=== PATIENT | male | born 1965 | race Caucasian/White ===

== ENCOUNTER 2017-11-29 19:04 | Emergency (ER) | payer MEDICARE ==
--- NOTE | 2017-11-29 19:24 | Emergency Department Record ---
History of Present Illness - General Chief complaint: Lower Extremity Pain Stated complaint: l leg swollen Time Seen by Provider: 11/29/17 19:18 Source: Patient Mode of Arrival: Ambulatory Limitations: No limitations - History of Present Illness Initial comments: 52 yo male presents to ED for evaluation of bilateral lower extremity edema over the past 24 hours. Patient denies history of DVT or CHF, but does report history of massive [place] 3 years ago resulting in ischemic cardiomyopathy, reports previous AICD and EF of 25%. Patient reports increased stress as he has been attending the trial this week. MD Complaint: Extremity pain, Extremity swelling Onset/Timin -: Hour(s) Location: Bilateral History of Same: No Severity scale (1-10): 7 Quality: Aching Consistency: Constant Improves with: Nothing Worsens with: Nothing Associated Symptoms: Denies other symptoms - Related Data Home Medications Medication Instructions Recorded Confirmed Last Taken Clopidogrel Bisulfate [Plavix] 75 mg PO DAILY 11/29/17 11/29/17 Unknown Hydrocodone/Acetaminophen [[place] 1 each PO Q4H 11/29/17 11/29/17 Unknown 10-325 Tablet] Previous Rx's Medication Instructions Recorded Diazepam [Valium] 5 mg PO Q8H PRN #15 tab 11/29/17 Furosemide [Lasix] 40 mg PO DAILY #3 tab 11/29/17 Allergies Allergy/AdvReac Type Severity Reaction Status Date / Time No Known Drug Allergies Allergy Verified 11/18/14 11:39 Travel Screening - Travel/Exposure Within Last 30 Days Have you traveled within the last 30 days?: No - Travel/Exposure Within Last Year Have you traveled outside the [place] in the last year?: No - Additonal Travel Details Have you been exposed to anyone with a communicable illness?: No - Travel Symptoms Symptom Screening: None Review of Systems Constitutional: Denies: Chills, Fever, Malaise, Night sweats Eyes: Denies: Eye discharge, Eye pain ENT: Denies: Congestion, Ear pain Respiratory: Denies: Cough, Dyspnea Cardiovascular: Reports: Edema. Denies: Chest pain, Dyspnea on exertion Endocrine: Denies: Fatigue, Heat or cold intolerance Gastrointestinal: Denies: Abdominal pain, Nausea, Vomiting Genitourinary: Denies: Incontinence, Retention Musculoskeletal: Denies: Arthralgia, Back pain, Gout, Joint swelling Skin: Denies: Bruising, Change in color Neurological: Denies: Abnormal gait, Confusion, Headache, Seizure Psychiatric: Denies: Anxiety Hematological/Lymphatic: Denies: Anemia, Blood Clots Past Medical History - SOCIAL HISTORY Smoking Status: Former smoker Alcohol Use: None Drug Use: None - RESPIRATORY Hx Respiratory Disorders: No - CARDIOVASCULAR Hx Cardio Disorders: No Hx Abnormal EKG: Yes Hx Cardiac Cath: Yes Hx Heart Attack: Yes Hx Pacemaker/Defib: Yes (Temp external harness Defib) - NEURO Hx Neuro Disorders: No - GI Hx GI Disorders: No - Hx Genitourinary Disorders: No - ENDOCRINE Hx Endocrine Disorders: No - MUSCULOSKELETAL Hx Musculoskeletal Disorders: No - PSYCH Hx Psych Problems: No - HEMATOLOGY/ONCOLOGY Hx Hematology/Oncology Disorders: No Family Medical History Any Significant Family History?: No Hx Heart Disease: Grandparents Physical Exam - General General Appearance: Alert, Oriented x3, Cooperative, Moderate distress Limitations: No limitations - Head Head exam: Atraumatic, Normocephalic, Normal inspection Head exam detail: negative: Abrasion, Contusion, Hooker's sign, General tenderness, Hematoma, Laceration - Eye Eye exam: Normal appearance. negative: Conjunctival injection, Periorbital swelling, Periorbital tenderness, Scleral icterus - ENT Ear exam: negative: Auricular hematoma, Auricular trauma Nasal Exam: negative: Active bleeding, Discharge, Dried blood, Foreign body Mouth exam: negative: Drooling, Laceration, Muffled voice, Tongue elevation - Neck Neck exam: Normal inspection. negative: Meningismus, Tenderness - Respiratory Respiratory exam: Decreased breath sounds. negative: Rales, Respiratory distress, Rhonchi, Stridor - Cardiovascular Cardiovascular Exam: Regular rate, Normal rhythm, Normal heart sounds - GI/Abdominal GI/Abdominal exam: Soft. negative: Rebound, Rigid, Tenderness - Rectal Rectal exam: Deferred - exam: Deferred - Extremities Extremities exam: Pedal edema (2+ bilateral LE edema). negative: Calf tenderness, Tenderness - Back Back exam: Denies: CVA tenderness (R), CVA tenderness (L) - Neurological Neurological exam: Alert, Normal gait, Oriented X3 - Psychiatric Psychiatric exam: Normal affect, Normal mood - Skin Skin exam: Normal color. negative: Abrasion Type of lesion: negative: abrasion Course Vital Signs 11/29/17 19:09 Temperature 98.5 F Pulse Rate 88 Respiratory 20 Rate Blood Pressure 135/83 Pulse Ox 90 L - Reevaluation(s) Reevaluation #1: 11/29/17 19:36 EKG: NSR 80 Normal axis, normal intervals, low voltage present ST elevation ZV2, V3 similar to previous (07/09/16). Reevaluation #2: 11/29/17 20:30 CXR: New ICD since previous, no acute infiltrate, no acute process identified. Reevaluation #3: 11/29/17 20:46 patient was updated on all results, negative D-Dimer and minimally elevated BNP (does not appear c/w CHF). 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 Patient appears stable for discharge at this time. Medical Decision Making - Lab Data Result diagrams: 11/29/17 19:30 11/29/17 19:30 Disposition Disposition: Discharge Clinical Impression: Peripheral edema Disposition: Home, Self-Care Condition: (2) Stable Instructions: Leg Edema (ED) Additional Instructions: Return to ED if your symptoms worsen or if you have any concerns. Valium and Lasix as directed. Follow-up with your family doctor in 3-5 days as directed. Prescriptions: Diazepam [Valium] 5 mg PO Q8H PRN #15 tab PRN Reason: Pain - Moderate (5-7) Furosemide [Lasix] 40 mg PO DAILY #3 tab Forms: Patient Portal Access Time of Disposition: 20:51 Quality - Quality Measures Quality Measures: N/A - Blood Pressure Screening Does Patient Have Any of the Following: Active Dx of HTN Blood Pressure Classification: Pre-Hypertensive BP Reading Systolic Measurement: 135 Diastolic Measurement: 83 Screening for High Blood Pressure: Patient Exclusion, Hx of HTN [G9744]
[2017-11-29 19:43] LABS: BASO % 0.1 % (0-6); EOS % 0.1 % (0-6); GRAN % 76.2 % (47-80); HEMATOCRIT 41.5 % (42.0-52.0); HEMOGLOBIN 13.6 gm/dl (14.0-18.0); LYMPH % 14.7 % (16-45); MEAN CELL VOLUME 97.6 fl (81-97); MEAN CORPUSCULAR HGB CONC 32.8 g/dl (32-36); MONO % 8.9 % (0-9); PLATELET COUNT 325 K/uL (130-400); RED BLOOD COUNT 4.25 M/uL (4.40-5.70); RED CELL DISTRIBUTION WIDTH 14.1 % (11.5-14.5); WHITE BLOOD COUNT W/O DIFF 14.6 K/uL (4.2-12.2)
[2017-11-29 19:52] LABS: BLOOD UREA NITROGEN 19 mg/dL (6-20); EST GLOMERULAR FILTRATION RATE > 60 mL/min; TOTAL PROTEIN 7.1 g/dL (6.6-8.7)
[2017-11-29 19:54] LABS: GLUCOSE,RANDOM 156 mg/dL (74-109)
[2017-11-29 19:57] LABS: ALB/GLOB RATIO 1.4 (1.1-1.8); ALBUMIN 4.2 g/dL (4.0-5.0); ALKALINE PHOSPHATASE 109 U/L (40-129); ALT/SGPT 33 U/L (<41); AST/SGOT 49 U/L (10.0-50.0)
[2017-11-29] MEDS ORDERED: FUROSEMIDE IV 20MG/2ML VIAL IVP ONE (20:48)
[2017-11-29] MEDS ORDERED: DIAZEPAM 5 MG TABLET PO ONE (20:49)
--- NOTE | 2017-11-30 18:24 | RADIOLOGY REPORT ---
EXAM: CHEST 2 VIEWS HISTORY: LEFT THIGH PAIN, HISTORY OF CHF. TECHNIQUE: PA and lateral views. COMPARISON: Portable chest 11/18/14. FINDINGS: Heart size is within normal limits. There is now an ICD in place, new since the prior exam, with the electrode leads in the region of the right atrium and right ventricle. No pneumothorax evident. No definite acute infiltrate seen. No pleural effusion or pneumothorax evident. IMPRESSION: 1. NEW ICD IN PLACE WITH NO PNEUMOTHORAX EVIDENT. 2. HEART SIZE WITHIN NORMAL LIMITS. 3. NO DEFINITE ACUTE INFILTRATE SEEN. JOB NUMBER: [id number] [facility]
== END 2017-11-29 21:03 | disposition home or self-care (01) ==
LOC: ER 19:04
DX: R60.0 Localized edema (principal); R79.89 Other specified abnormal findings of blood chemistry; M79.652 Pain in left thigh; I50.9 Heart failure, unspecified; I25.2 Old myocardial infarction; Z95.810 Presence of automatic (implantable) cardiac defibrillator; Z87.891 Personal history of nicotine dependence
CPT/HCPCS: 99284 ×2; 96374; 85025; 80053; 84484; 85379; 83880; 71046; 93005; 93010; J3490; J1940

== ENCOUNTER 2018-11-08 16:34 | Emergency (ER) | payer MEDICARE ==
--- NOTE | 2018-11-08 16:58 | Emergency Department Record ---
History of Present Illness - General Chief Complaint: Numbness Stated Complaint: RT SIDE NUMB Time Seen by Provider: 11/08/18 16:47 Source: Patient Mode of Arrival: Ambulatory Limitations: No limitations - History of Present Illness Initial Comments: pt started having r sided numbness and decreased parakeet raiser 1 hr ago. the numbness is in his arm and shoulder and face. he has a hx of a cardiac arrest. he has no aleman. Onset/Timin -: Minutes(s) Location: Right arm, Right face History of same: No Place: Home Severity: Severe Quality: Numb Improves With: None Worsens With: None On Anticoagulants: Yes Context: Sudden onset Associated Symptoms: Denies other symptoms Treatments Prior to Arrival: None - [place] Coma Scale Eye Response: (4) Open spontaneously Motor Response: (6) Obeys commands Verbal Response: (5) Oriented [place] Total: 15 - Symptoms of Stroke Onset of Symptoms Date: 11/08/18 Onset of Symptoms Time: 16:00 Symptom Onset Unknown: No Symptoms of stroke: Muscle Weakness, Numbness, Weakness of Face Muscles Baseline State End Date: 11/08/18 Baseline State End Time: 16:00 - Related Data Allergies/Adverse Reactions: Allergies Allergy/AdvReac Type Severity Reaction Status Date / Time No Known Drug Allergies Allergy Unverified 02/12/18 11:58 Travel Screening - Travel/Exposure Within Last 30 Days Have you traveled within the last 30 days?: No - Travel Symptoms Symptom Screening: Weakness Review of Systems Reviewed: No additional complaints except as noted below Constitutional: Reports: As per HPI. Denies: Chills, Fever, Malaise, Night sweats, Weakness, Weight change Eyes: Reports: As per HPI. Denies: Eye discharge, Eye pain, Photophobia, Vision change ENT: Reports: As per HPI. Denies: Congestion, Dental pain, Ear pain, Epistaxis , Hearing loss, Throat pain Respiratory: Reports: As per HPI. Denies: Cough, Dyspnea, Hemoptysis, Stridor, Wheezes Cardiovascular: Reports: As per HPI. Denies: Arrhythmia, Chest pain, Dyspnea on exertion, Edema, Murmurs, Orthopnea, Palpitations, Paroxysmal nocturnal dyspnea, Rheumatic Fever, Syncope Endocrine: Reports: As per HPI. Denies: Fatigue, Heat or cold intolerance, Polydipsia, Polyuria Gastrointestinal: Reports: As per HPI. Denies: Abdominal pain, Constipation, Diarrhea, Hematemesis, Hematochezia, Melena, Nausea, Vomiting Genitourinary: Reports: As per HPI. Denies: Dysuria, Frequency, Hematuria, Incontinence, Retention, Testicular pain, Testicular mass, Urgency Musculoskeletal: Reports: As per HPI. Denies: Arthralgia, Back pain, Gout, Joint swelling, Myalgia, Neck pain Skin: Reports: As per HPI. Denies: Bruising, Change in color, Change in hair/ nails, Lesions, Pruritus, Rash Neurological: Reports: As per HPI, Numbness, Paresthesias, Tingling, Weakness. Denies: Abnormal gait, Confusion, Headache, Seizure, Tremors, Vertigo Psychiatric: Reports: As per HPI. Denies: Anxiety, Auditory hallucinations, Depression, Homicidal thoughts, Suicidal thoughts, Visual hallucinations Hematological/Lymphatic: Reports: As per HPI. Denies: Anemia, Blood Clots, Easy bleeding, Easy bruising, Swollen glands Past Medical History - SOCIAL HISTORY Smoking Status: Light tobacco smoker (<10/day) Alcohol Use: Occasional Drug Use: None - RESPIRATORY Hx Respiratory Disorders: No - CARDIOVASCULAR Hx Cardio Disorders: No Hx Abnormal EKG: Yes Hx Cardiac Cath: Yes Hx Heart Attack: Yes Hx Pacemaker/Defib: Yes (Temp external harness Defib) - NEURO Hx Neuro Disorders: No - GI Hx GI Disorders: No - Hx Genitourinary Disorders: No - ENDOCRINE Hx Endocrine Disorders: No - MUSCULOSKELETAL Hx Musculoskeletal Disorders: No - PSYCH Hx Psych Problems: No - HEMATOLOGY/ONCOLOGY Hx Hematology/Oncology Disorders: No Family Medical History Any Significant Family History?: Yes Hx Heart Disease: Grandparents Hx Stroke: Grandparents Physical Exam - General General Appearance: Alert, Oriented x3, Cooperative, Mild distress - Head Head exam: Normal inspection - Eye Eye exam: Normal appearance, PERRL, EOMI Pupils: Normal accommodation - ENT ENT exam: Normal exam, Mucous membranes moist, Normal external ear exam, Normal orophraynx Ear exam: Normal external inspection. negative: External canal tenderness Nasal Exam: Normal inspection. negative: Discharge, Sinus tenderness Mouth exam: Normal external inspection, Tongue normal Teeth exam: Normal inspection. negative: Dental caries Throat exam: Normal inspection. negative: Tonsillar erythema, Tonsillar exudate - Neck Neck exam: Normal inspection, Full ROM. negative: Tenderness - Respiratory Respiratory exam: Normal lung sounds bilaterally. negative: Respiratory distress - Cardiovascular Cardiovascular Exam: Regular rate, Normal rhythm, Normal heart sounds - GI/Abdominal GI/Abdominal exam: Soft, Normal bowel sounds. negative: Tenderness - Rectal Rectal exam: Deferred - exam: Deferred - Extremities Extremities exam: Normal inspection, Full ROM, Normal capillary refill. negative: Tenderness - Back Back exam: Reports: Normal inspection, Full ROM. Denies: Muscle spasm, Rash noted, Tenderness - Neurological Neurological exam: Alert, CN II-XII intact, Motor sensory deficit (r sided numbness in arm and face and weakness in r arm and r leg), Normal gait, Oriented X3 - Psychiatric Psychiatric exam: Normal affect, Normal mood - Skin Skin exam: Dry, Intact, Normal color, Warm Stroke Assessment - NIH Stroke Scale 1a. Level of Consciousness: (0) Alert 1b. LOC Questions: (0) Answers Correctly 1c. LOC Commands: (0) Performs Tasks Correctly 2. Best Gaze: (0) Normal 3. Visual: (0) No Visual Loss 4. Facial Palsy: (0) Normal Symmetrical Movement 5a. Motor Arm Left: (0) No Drift 5b. Motor Arm Right: (1) Drift 6a. Motor Leg Left: (0) No Drift 6b. Motor Leg Right: (1) Drift 7. Limb Ataxia: (1) Present 1 Limb 8. Sensory: (1) Mild/Moderate Sensory Loss 9. Best Language: (0) No Aphasia 10. Dysarthria: (0) Normal 11. Extinction/Inattention: (0) No Abnormality NIH Stoke Scale Total: 4 Course Vital Signs 11/08/18 16:37 Pulse Rate 84 Respiratory 25 H Rate Blood Pressure 151/89 Pulse Ox 96 - Reevaluation(s) Reevaluation #1: 11/08/18 17:44 d/w dr bowden who agreed with TPA Reevaluation #2: 11/08/18 17:46 pt has no contraindications to tpa Medical Decision Making - Lab Data Result diagrams: 11/08/18 16:45 11/08/18 16:45 Disposition Disposition: Transfer Clinical Impression: Stroke Qualifiers: CVA mechanism: unspecified Qualified Code(s): I63.9 - Cerebral infarction, unspecified Disposition: Acute Care Hospital Transfer Transfer To: [facility] Reason For Transfer: stroke Accepting Physician: jacqueline bowden and jess Time Discussed w/Accepting Physician: 17:41 Forms: Patient Portal Access Quality - Quality Measures Quality Measures: N/A - Blood Pressure Screening Does Patient Have Any of the Following: Active Dx of HTN Blood Pressure Classification: Pre-Hypertensive BP Reading Systolic Measurement: 151 Diastolic Measurement: 89 Screening for High Blood Pressure: Patient Exclusion, Hx of HTN [G9744]
[2018-11-08 17:05] LABS: BASO % 0.3 % (0-6); EOS % 2.8 % (0-6); GRAN % 64.7 % (47-80); HEMATOCRIT 45.2 % (42.0-52.0); LYMPH % 24.1 % (16-45); MEAN CELL VOLUME 98.9 fl (81-97); MEAN CORPUSCULAR HEMOGLOBIN 32.8 pg (27-33); MEAN CORPUSCULAR HGB CONC 33.2 g/dl (32-36); MEAN PLATELET VOLUME 9.3 fl (7.4-10.4); MONO % 8.1 % (0-9); PLATELET COUNT 316 K/uL (130-400); RED BLOOD COUNT 4.57 M/uL (4.40-5.70); RED CELL DISTRIBUTION WIDTH 13.2 % (11.5-14.5); WHITE BLOOD COUNT W/O DIFF 10.1 K/uL (4.2-12.2)
[2018-11-08 17:15] LABS: BLOOD UREA NITROGEN 10 mg/dL (6-20); PARTIAL THROMBOPLASTIN TIME 31.4 SECONDS (24.5-39.1); PROTHROMBIN TIME (PATIENT) 10.5 SECONDS (9.5-12.1)
[2018-11-08 17:16] LABS: CREATININE 0.7 mg/dL (0.7-1.2); EST GLOMERULAR FILTRATION RATE > 60 mL/min; TOTAL PROTEIN 7.6 g/dL (6.6-8.7)
[2018-11-08 17:18] LABS: GLUCOSE,RANDOM 197 mg/dL (74-109)
[2018-11-08 17:21] LABS: ALB/GLOB RATIO 1.2 (1.1-1.8); ALBUMIN 4.1 g/dL (4.0-5.0); ALKALINE PHOSPHATASE 153 U/L (55-149); ALT/SGPT 24 U/L (<41); AST/SGOT 19 U/L (10.0-50.0); CREATINE PHOSPHOKINASE 111 U/L (39-308)
[2018-11-08 17:24] LABS: CKMB 2.3 ng/mL (<6.73)
[2018-11-08] MEDS ORDERED: ALTEPLASE 100 MG VIAL IV ONE (17:35)
--- NOTE | 2018-11-08 17:48 | Emergency Department Record ---
History of Present Illness - General Chief Complaint: Numbness Stated Complaint: RT SIDE NUMB Time Seen by Provider: 11/08/18 16:47 Source: Patient Mode of Arrival: Ambulatory Limitations: No limitations - History of Present Illness Onset/Timin -: Minutes(s) Location: Right arm, Right face History of same: No Place: Home Severity: Severe Quality: Numb Improves With: None Worsens With: None On Anticoagulants: Yes Context: Sudden onset Associated Symptoms: Denies other symptoms Treatments Prior to Arrival: None - [place] Coma Scale Eye Response: (4) Open spontaneously Motor Response: (6) Obeys commands Verbal Response: (5) Oriented [place] Total: 15 - Symptoms of Stroke Onset of Symptoms Date: 11/08/18 Onset of Symptoms Time: 16:00 Symptom Onset Unknown: No Symptoms of stroke: Muscle Weakness, Numbness, Weakness of Face Muscles Baseline State End Date: 11/08/18 Baseline State End Time: 16:00 - Related Data Allergies/Adverse Reactions: Allergies Allergy/AdvReac Type Severity Reaction Status Date / Time No Known Drug Allergies Allergy Unverified 02/12/18 11:58 Travel Screening - Travel/Exposure Within Last 30 Days Have you traveled within the last 30 days?: No - Travel Symptoms Symptom Screening: Weakness Review of Systems Constitutional: Reports: As per HPI. Denies: Chills, Fever, Malaise, Night sweats, Weakness, Weight change Eyes: Reports: As per HPI. Denies: Eye discharge, Eye pain, Photophobia, Vision change ENT: Reports: As per HPI. Denies: Congestion, Dental pain, Ear pain, Epistaxis , Hearing loss, Throat pain Respiratory: Reports: As per HPI. Denies: Cough, Dyspnea, Hemoptysis, Stridor, Wheezes Cardiovascular: Reports: As per HPI. Denies: Arrhythmia, Chest pain, Dyspnea on exertion, Edema, Murmurs, Orthopnea, Palpitations, Paroxysmal nocturnal dyspnea, Rheumatic Fever, Syncope Endocrine: Reports: As per HPI. Denies: Fatigue, Heat or cold intolerance, Polydipsia, Polyuria Gastrointestinal: Reports: As per HPI. Denies: Abdominal pain, Constipation, Diarrhea, Hematemesis, Hematochezia, Melena, Nausea, Vomiting Genitourinary: Reports: As per HPI. Denies: Dysuria, Frequency, Hematuria, Incontinence, Retention, Testicular pain, Testicular mass, Urgency Musculoskeletal: Reports: As per HPI. Denies: Arthralgia, Back pain, Gout, Joint swelling, Myalgia, Neck pain Skin: Reports: As per HPI. Denies: Bruising, Change in color, Change in hair/ nails, Lesions, Pruritus, Rash Neurological: Reports: As per HPI, Numbness, Paresthesias, Tingling, Weakness. Denies: Abnormal gait, Confusion, Headache, Seizure, Tremors, Vertigo Psychiatric: Reports: As per HPI. Denies: Anxiety, Auditory hallucinations, Depression, Homicidal thoughts, Suicidal thoughts, Visual hallucinations Hematological/Lymphatic: Reports: As per HPI. Denies: Anemia, Blood Clots, Easy bleeding, Easy bruising, Swollen glands Past Medical History - SOCIAL HISTORY Smoking Status: Light tobacco smoker (<10/day) Alcohol Use: Occasional Drug Use: None - RESPIRATORY Hx Respiratory Disorders: No - CARDIOVASCULAR Hx Cardio Disorders: No Hx Abnormal EKG: Yes Hx Cardiac Cath: Yes Hx Heart Attack: Yes Hx Pacemaker/Defib: Yes (Temp external harness Defib) - NEURO Hx Neuro Disorders: No - GI Hx GI Disorders: No - Hx Genitourinary Disorders: No - ENDOCRINE Hx Endocrine Disorders: No - MUSCULOSKELETAL Hx Musculoskeletal Disorders: No - PSYCH Hx Psych Problems: No - HEMATOLOGY/ONCOLOGY Hx Hematology/Oncology Disorders: No Family Medical History Any Significant Family History?: Yes Hx Heart Disease: Grandparents Hx Stroke: Grandparents Physical Exam - General Limitations: No limitations Course Vital Signs 11/08/18 16:37 Pulse Rate 84 Respiratory 25 H Rate Blood Pressure 151/89 Pulse Ox 96 Medical Decision Making - Lab Data Result diagrams: 11/08/18 16:45 11/08/18 16:45 Lab Results 11/08/18 11/08/18 11/08/18 Range/Units 16:45 16:45 16:45 WBC 10.1 (4.2-12.2) K/uL RBC 4.57 (4.40-5.70) M/uL Hgb 15.0 (14.0-18.0) gm/dl Hct 45.2 (42.0-52.0) % MCV 98.9 H (81-97) fl MCH 32.8 (27-33) pg MCHC 33.2 (32-36) g/dl RDW 13.2 (11.5-14.5) % Plt Count 316 (130-400) K/uL MPV 9.3 (7.4-10.4) fl Gran % 64.7 (47-80) % Lymphocytes % 24.1 (16-45) % Monocytes % 8.1 (0-9) % Eosinophils % 2.8 (0-6) % Basophils % 0.3 (0-6) % PT 10.5 (9.5-12.1) SECONDS INR 1.0 APTT 31.4 (24.5-39.1) SECONDS Sodium 140 (136-145) mmol/L Potassium 4.1 (3.4-4.5) mmol/L Chloride 99 (98-107) mmol/L Carbon Dioxide 26.0 (22-29) mmol/L Anion Gap 15.0 (7-16) BUN 10 (6-20) mg/dL Creatinine 0.7 (0.7-1.2) mg/dL Estimated GFR > 60 mL/min Random Glucose 197 H (74-109) mg/dL Calcium 9.2 (8.6-10.0) mg/dL Total Bilirubin 0.20 (0.2-1.0) mg/dL AST 19 (10.0-50.0) U/L ALT 24 (<41) U/L Alkaline Phosphatase 153 H (55-149) U/L Creatine Kinase 111 (39-308) U/L CK-MB (CK-2) 2.3 (<6.73) ng/mL Troponin T (0-0.010) ng/mL Total Protein 7.6 (6.6-8.7) g/dL Albumin 4.1 (4.0-5.0) g/dL Globulin 3.5 (1.4-4.8) gm/dL Albumin/Globulin Ratio 1.2 (1.1-1.8) 11/08/18 Range/Units 17:02 WBC (4.2-12.2) K/uL RBC (4.40-5.70) M/uL Hgb (14.0-18.0) gm/dl Hct (42.0-52.0) % MCV (81-97) fl MCH (27-33) pg MCHC (32-36) g/dl RDW (11.5-14.5) % Plt Count (130-400) K/uL MPV (7.4-10.4) fl Gran % (47-80) % Lymphocytes % (16-45) % Monocytes % (0-9) % Eosinophils % (0-6) % Basophils % (0-6) % PT (9.5-12.1) SECONDS INR APTT (24.5-39.1) SECONDS Sodium (136-145) mmol/L Potassium (3.4-4.5) mmol/L Chloride (98-107) mmol/L Carbon Dioxide (22-29) mmol/L Anion Gap (7-16) BUN (6-20) mg/dL Creatinine (0.7-1.2) mg/dL Estimated GFR mL/min Random Glucose (74-109) mg/dL Calcium (8.6-10.0) mg/dL Total Bilirubin (0.2-1.0) mg/dL AST (10.0-50.0) U/L ALT (<41) U/L Alkaline Phosphatase (55-149) U/L Creatine Kinase (39-308) U/L CK-MB (CK-2) (<6.73) ng/mL Troponin T < 0.010 (0-0.010) ng/mL Total Protein (6.6-8.7) g/dL Albumin (4.0-5.0) g/dL Globulin (1.4-4.8) gm/dL Albumin/Globulin Ratio (1.1-1.8) Critical Care Time Critical Care Time: Yes Total Critical Care Time: 60 Disposition Clinical Impression: Stroke Qualifiers: CVA mechanism: unspecified Qualified Code(s): I63.9 - Cerebral infarction, unspecified Disposition: Acute Care Hospital Transfer Forms: Patient Portal Access Quality - Quality Measures Quality Measures: N/A - Blood Pressure Screening Does Patient Have Any of the Following: Active Dx of HTN Blood Pressure Classification: Pre-Hypertensive BP Reading Systolic Measurement: 151 Diastolic Measurement: 89 Screening for High Blood Pressure: Patient Exclusion, Hx of HTN [G9744]
--- NOTE | 2018-11-11 05:08 | CT SCAN REPORT ---
DATE: 11/08/2018. EXAM: HEAD CT HISTORY: Right-sided numbness. TECHNIQUE: Axial CT scan of the head performed without intravenous contrast. COMPARISON: None. FINDINGS: No definite acute intracranial hemorrhage identified. No focal mass effect or midline shift apparent. Mild generalized atrophy. No definite acute infarct or intracranial mass lesion seen. Paranasal sinuses and mastoids all appear essentially clear. IMPRESSION: EMERGENCY NONCONTRAST HEAD CT APPEARS ESSENTIALLY NEGATIVE WITH NO DEFINITE ACUTE INTRACRANIAL HEMORRHAGE OR FOCAL MASS EFFECT IDENTIFIED. JOB [facility]BER: [id number] [facility]
== END 2018-11-08 18:00 | disposition short-term general hospital (02) ==
LOC: ER 16:34
DX: I63.9 Cerebral infarction, unspecified (principal); R29.704 NIHSS score 4; I10 Essential (primary) hypertension; F17.210 Nicotine dependence, cigarettes, uncomplicated; I25.2 Old myocardial infarction; Z86.74 Personal history of sudden cardiac arrest
CPT/HCPCS: 99291 ×2; 96374; 82550; 85025; 85730; 85610; 82553; 80048; 80053; 84484; 70450; 93005; 93010; J2997

== ENCOUNTER 2019-07-12 16:41 | Emergency (ER) | payer MEDICARE ==
[2019-07-12] MEDS ORDERED: MORPHINE SULFATE 5 MG/ML VIAL IVP ONE (16:56)
--- NOTE | 2019-07-12 17:02 | Emergency Department Record ---
History of Present Illness - General Chief Complaint: Back Pain/Injury Stated Complaint: BACK PAIN Time Seen by Provider: 07/12/19 16:44 Source: Patient Mode of Arrival: Ambulatory Limitations: No limitations - History of Present Illness Initial Comments: 54 yo male presents with about two weeks of lower back pain. The patient did a lot of work with lifting and bending. The next morning his lower back was very uncomfortable. The lumbar area has gradually become more painful. No abdominal pain. No urinary incontinence or retention. At times, in certain prolong positions he had some numbness and tingling. Laying flat his pain is well controlled without any numbness or tingling currently. No pain radiating down the legs. His pain is very reproducible with trying to sit up. Prolonged sitting (like on the toilette) is the most uncomfortable. He has a defibrillator due to prior cardiac arrest. No history of back surgery. MD Complaint: Back pain Onset/Timin -: Week(s) Place: Home Severity: Moderate Severity scale (1-10): 9 Quality: Aching, Burning Context: Bending, Turning/twisting Associated Symptoms: Numbness (intermittent) - Related Data Home Medications Medication Instructions Recorded Confirmed Last Taken Warfarin Sodium 7.5 mg PO DAILY 07/12/19 07/12/19 1 Day Ago ~07/11/19 Previous Rx's Medication Instructions Recorded Hydrocodone/Acetaminophen [[place] 1 tab PO Q6H PRN #12 tab 07/12/19 5mg/325mg] Allergies Allergy/AdvReac Type Severity Reaction Status Date / Time No Known Drug Allergies Allergy Verified 07/12/19 16:48 Travel Screening - Travel/Exposure Within Last 30 Days Have you traveled within the last 30 days?: No - Travel/Exposure Within Last Year Have you traveled outside the [place] in the last year?: No - Additonal Travel Details Have you been exposed to anyone with a communicable illness?: No - Travel Symptoms Symptom Screening: None Review of Systems Constitutional: Denies: Chills, Fever, Malaise, Weakness Eyes: Denies: Eye discharge ENT: Denies: Congestion, Throat pain Respiratory: Denies: Cough, Dyspnea Cardiovascular: Denies: Chest pain, Palpitations, Syncope Endocrine: Denies: Fatigue, Polydipsia, Polyuria Gastrointestinal: Denies: Abdominal pain, Diarrhea, Nausea, Vomiting Genitourinary: Denies: Dysuria, Frequency, Hematuria Musculoskeletal: Reports: Back pain, Myalgia. Denies: Arthralgia, Gout, Joint swelling, Neck pain Skin: Denies: Bruising, Change in color, Rash Neurological: Reports: Numbness, Tingling. Denies: Abnormal gait, Confusion, Headache, Paresthesias, Seizure, Tremors, Vertigo, Weakness Psychiatric: Denies: Anxiety Hematological/Lymphatic: Denies: Easy bleeding, Easy bruising Past Medical History - SOCIAL HISTORY Smoking Status: Light tobacco smoker (<10/day) Alcohol Use: None Drug Use: None - RESPIRATORY Hx Respiratory Disorders: No - CARDIOVASCULAR Hx Cardio Disorders: No Hx Abnormal EKG: Yes Hx Cardiac Cath: Yes Hx Heart Attack: Yes Hx Pacemaker/Defib: Yes (Temp external harness Defib) - NEURO Hx Neuro Disorders: Yes Hx TIA: Yes (2018) - GI Hx GI Disorders: No - Hx Genitourinary Disorders: No - ENDOCRINE Hx Endocrine Disorders: No - MUSCULOSKELETAL Hx Musculoskeletal Disorders: No - PSYCH Hx Psych Problems: No - HEMATOLOGY/ONCOLOGY Hx Hematology/Oncology Disorders: No Family Medical History Any Significant Family History?: Yes Hx Heart Disease: Grandparents Hx Stroke: Grandparents Physical Exam - General General Appearance: Alert, Oriented x3, Cooperative, No acute distress Limitations: No limitations - Head Head exam: Atraumatic, Normal inspection - Eye Eye exam: Normal appearance, PERRL. negative: Conjunctival injection, Scleral icterus - ENT ENT exam: Normal exam, Mucous membranes moist, Normal orophraynx Ear exam: Normal external inspection Nasal Exam: Normal inspection Mouth exam: Normal external inspection - Neck Neck exam: Normal inspection - Respiratory Respiratory exam: Normal lung sounds bilaterally. negative: Respiratory distress - Cardiovascular Cardiovascular Exam: Regular rate, Normal rhythm, Normal heart sounds - GI/Abdominal GI/Abdominal exam: Soft. negative: Distended, Guarding, Tenderness - Rectal Rectal exam: Deferred - exam: Deferred - Extremities Extremities exam: Normal inspection. negative: Full ROM (low back pain with straight leg raise. Right 20 degrees, Left 30 degrees. No pain down the legs on SLT), Joint swelling, Pedal edema, Tenderness - Back Back exam: Denies: CVA tenderness (R), CVA tenderness (L) - Neurological Neurological exam: Alert, Normal gait, Oriented X3, Reflexes normal. negative: Abnormal gait, Altered, Motor sensory deficit, Other (no weakness with foot plantar or dorsiflexion, ) - Psychiatric Psychiatric exam: Normal affect, Normal mood - Skin Skin exam: Dry, Intact, Normal color, Warm Course Vital Signs 07/12/19 16:42 Temperature 97.9 F Pulse Rate 89 Respiratory 16 Rate Blood Pressure 148/92 Pulse Ox 94 L - Reevaluation(s) Reevaluation #1: 07/12/19 17:02 No current motor or sensory deficits on examination The pain is very reproducible with movement No abdominal pain. No current weakness, numbness or changes in bowel or bladder function. 07/12/19 18:[address] was reviewed. No acute process. Left intra renal stones, cyst off the R kidney, 1cm L kidney cyst The patient has some pain control The examination is consistent with musculoskeletal in etiology without any neurologic findings He will be treated supportively with limited analgesics at home. Disposition Disposition: Discharge Clinical Impression: Lumbar spine strain Qualifiers: Encounter type: initial encounter Qualified Code(s): S39.012A - Strain of muscle, fascia and tendon of lower back, initial encounter Disposition: Home, Self-Care Condition: (1) Good Instructions: Low Back Strain (ED) Additional Instructions: Review this ER visit and the tests performed with your family doctor Call your doctor for the next available follow up appointment if pain continues Return to the ER for a recheck if worse, any new concerns or questions Take the prescriptions provided as directed Prescriptions: Hydrocodone/Acetaminophen [[place] 5mg/325mg] 1 tab PO Q6H PRN #12 tab PRN Reason: Pain - General Forms: Patient Portal Access Time of Disposition: 18:31 Quality - Quality Measures Quality Measures: N/A - Blood Pressure Screening Does Patient Have Any of the Following: Active Dx of HTN Blood Pressure Classification: Hypertensive Reading Systolic Measurement: 148 Diastolic Measurement: 92 Screening for High Blood Pressure: Patient Exclusion, Hx of HTN [G9744]
[2019-07-12] MEDS ORDERED: ORPHENADRINE CITRATE 60MG/2ML VIAL IM ONE (17:04)
--- NOTE | 2019-07-12 18:19 | CT SCAN REPORT ---
EXAMINATION: ABDOMEN/PELVIS WO CONTRAST EXAM DATE:07/12/2019 5:45 PM TECHNIQUE: Spiral CT images were obtained from the lung bases to the ischial tuberosities without int ravenous contrast. Sagittal and coronal 2-D reformats were made from source images. Oral contrast: N o INDICATION: lower back pain COMPARISON: None FINDINGS: CT Abdomen: Evaluation of the solid abdominal organs and vascular structures is limited without intr avenous contrast. Liver: The liver is normal in size and morphology. No focal liver lesions. Bile ducts: Normal caliber bile ducts. Gallbladder: No calcified gallstones or other abnormal finding. Pancreas: No focal lesions or peripancreatic inflammation. No dilation of the main pancreatic duct . Spleen: Normal size Adrenals: No mass or other abnormality Kidneys and Ureters: Several left intrarenal stones measuring between 1 mm and 3 mm. No ureteral sto amy or hydronephrosis. Homogeneous exophytic cyst off the superior right kidney measuring approximate ly 7 cm. Approximately 1 cm cystic lesion in the superior left kidney. GI: Mild colonic diverticulosis. No adjacent inflammatory change or wall thickening. The small bowel is unremarkable. Normal appendix. Vasculature: Unremarkable. No aneurysmal dilation of the abdominal aorta. Lymph Nodes: No lymphadenopathy. Abdominal Wall: Unremarkable. Peritoneal Cavity: No free intraperitoneal fluid or gas. Retroperitoneum: Unremarkable. Skeletal: Unremarkable. Lung bases: The lung bases are unremarkable. CT Pelvis (In addition to findings described above.): Bladder: The bladder is underdistended, which limits evaluation. Lymph nodes: No lymphadenopathy. IMPRESSION: 1. No acute abnormality to explain the patient's abdominal pain. 2. Left nephrolithiasis. 3. Mild colonic diverticulosis. 4. Other findings as described above. Dictated by: Lc Rios MD on 07/12/2019 6:10 PM. .
[2019-07-12] MEDS ORDERED: HYDROCODONE/APAP 5/325MG TABLET PO ONE (18:37)
== END 2019-07-12 18:35 | disposition home or self-care (01) ==
LOC: ER 16:41
DX: S39.012A Strain of muscle, fascia and tendon of lower back, initial encounter (principal); X50.3XXA Overexertion from repetitive movements, initial encounter; Y92.009 Unspecified place in unspecified non-institutional (private) residence as the place of occurrence of the external cause; F17.210 Nicotine dependence, cigarettes, uncomplicated; I10 Essential (primary) hypertension; I25.2 Old myocardial infarction; Z79.01 Long term (current) use of anticoagulants
CPT/HCPCS: 74176; 96372; 96374; 99284; J2360

== ENCOUNTER 2019-07-15 15:17 | Emergency (ER) | payer MEDICARE ==
--- NOTE | 2019-07-15 15:25 | Emergency Department Record ---
History of Present Illness - General Stated Complaint: back pain Time Seen by Provider: 07/15/19 15:19 Source: Patient, Family Mode of Arrival: Ambulatory Limitations: No limitations - History of Present Illness Initial Comments: 54 yo male presents continued right lower lumbar pain. He did well the first day after the ED visit but the pain has returned. His pain is on the right lower area. CT performed on 07/12/19 was unremarkable. No current numbness, tingling, weakness, or changes in bowel or bladder function. No foot drop. He ambulated well into the ED. Changes in position are difficult. He has not contacted his family doctor. No abdominal pain. Normal aorta on the CT from 07/12 MD Complaint: Back pain, Back injury -: Week(s) (2.5) Place: Home Radiation: None Severity: Moderate Quality: Aching, Sharp Consistency: Constant Improves With: Walking Worsens With: Other (changes in position) Context: Other (Onset after working in the yard all day) Associated Symptoms: Denies other symptoms - Related Data Previous Rx's Medication Instructions Recorded Hydrocodone/Acetaminophen [[place] 1 tab PO Q6H PRN #12 tab 07/12/19 5mg/325mg] Methylprednisolone [Medrol Dose 4 mg PO DAILY #1 tab.ds.pk 07/15/19 Pack] Oxycodone HCl/Acetaminophen 1 tab PO Q6H #12 tab 07/15/19 [Percocet 5mg/325mg] Allergies Allergy/AdvReac Type Severity Reaction Status Date / Time No Known Drug Allergies Allergy Verified 07/12/19 16:48 Review of Systems Constitutional: Denies: Chills, Fever, Malaise, Weakness Eyes: Denies: Eye discharge ENT: Denies: Congestion, Throat pain Respiratory: Denies: Cough, Dyspnea Cardiovascular: Denies: Chest pain, Syncope Endocrine: Denies: Fatigue Gastrointestinal: Denies: Abdominal pain, Diarrhea, Nausea, Vomiting Genitourinary: Denies: Dysuria, Frequency, Hematuria Musculoskeletal: Reports: Back pain, Myalgia. Denies: Arthralgia Skin: Denies: Bruising, Change in color, Rash Neurological: Denies: Abnormal gait, Headache, Numbness, Tingling, Tremors, Weakness Psychiatric: Denies: Anxiety Hematological/Lymphatic: Denies: Easy bleeding, Easy bruising Past Medical History - SOCIAL HISTORY Smoking Status: Light tobacco smoker (<10/day) Drug Use: None - RESPIRATORY Hx Respiratory Disorders: No - CARDIOVASCULAR Hx Cardio Disorders: No Hx Abnormal EKG: Yes Hx Cardiac Cath: Yes Hx Heart Attack: Yes Hx Pacemaker/Defib: Yes (Temp external harness Defib) - NEURO Hx Neuro Disorders: Yes Hx TIA: Yes (2019) - GI Hx GI Disorders: No - Hx Genitourinary Disorders: No - ENDOCRINE Hx Endocrine Disorders: No - MUSCULOSKELETAL Hx Musculoskeletal Disorders: No - PSYCH Hx Psych Problems: No - HEMATOLOGY/ONCOLOGY Hx Hematology/Oncology Disorders: No Family Medical History Hx Heart Disease: Grandparents Hx Stroke: Grandparents Physical Exam - General General Appearance: Alert, Oriented x3, Cooperative, No acute distress Limitations: No limitations - Head Head exam: Atraumatic, Normal inspection - Eye Eye exam: Normal appearance. negative: Conjunctival injection, Scleral icterus - ENT ENT exam: Normal exam, Mucous membranes moist Ear exam: Normal external inspection Nasal Exam: Normal inspection Mouth exam: Normal external inspection - Neck Neck exam: Normal inspection, Full ROM. negative: Tenderness - Respiratory Respiratory exam: Normal lung sounds bilaterally. negative: Respiratory distress - Cardiovascular Cardiovascular Exam: Regular rate, Normal rhythm, Normal heart sounds - GI/Abdominal GI/Abdominal exam: Soft. negative: Tenderness - Rectal Rectal exam: Deferred - exam: Deferred - Extremities Extremities exam: Normal inspection, Full ROM. negative: Joint swelling, Pedal edema, Tenderness - Back Back exam: Reports: Normal inspection, Muscle spasm, Paraspinal tenderness, Ten derness, Vertebral tenderness Image of Body Front/Back: 1 - tender lower R lumbar, normal inspection, local tender and mild into the glutteal area on the right. Left if non tender - Neurological Neurological exam: Alert, Normal gait (steady), Oriented X3, Reflexes normal. negative: Abnormal gait, Motor sensory deficit - Psychiatric Psychiatric exam: Normal affect, Normal mood. negative: Agitated, Anxious - Skin Skin exam: Dry, Intact, Normal color, Warm Disposition Disposition: Discharge Clinical Impression: Lumbar spine strain Disposition: Home, Self-Care Condition: (1) Good Instructions: Low Back Strain (ED) Additional Instructions: Review this ER visit and the tests performed with your family doctor Call your doctor for the next available follow up appointment Return to the ER for a recheck if worse, any new concerns or questions Take the prescriptions provided as directed Prescriptions: Methylprednisolone [Medrol Dose Pack] 4 mg PO DAILY #1 tab.ds.pk Oxycodone HCl/Acetaminophen [Percocet 5mg/325mg] 1 tab PO Q6H #12 tab Time of Disposition: 16:01 Quality - Quality Measures Quality Measures: N/A - Blood Pressure Screening Does Patient Have Any of the Following: No Blood Pressure Classification: Hypertensive Reading Systolic Measurement: 145 Diastolic Measurement: 73 Screening for High Blood Pressure: < Pre-Hypertensive BP, F/U Documented > [G8950] Pre-Hypertensive Follow-up Interventions: Referral to alternative/primary care provider.
[2019-07-15] MEDS ORDERED: MORPHINE SULFATE 5 MG/ML VIAL IM ONE (15:26)
[2019-07-15] MEDS ORDERED: METHYLPREDNISOLONE 80MG/VIAL IM ONE (15:26)
== END 2019-07-15 16:18 | disposition home or self-care (01) ==
LOC: ER 15:17
DX: S39.012A Strain of muscle, fascia and tendon of lower back, initial encounter (principal); X50.3XXA Overexertion from repetitive movements, initial encounter; Y93.H9 Activity, other involving exterior property and land maintenance, building and construction; Y92.007 Garden or yard of unspecified non-institutional (private) residence as the place of occurrence of the external cause; I25.2 Old myocardial infarction; F17.210 Nicotine dependence, cigarettes, uncomplicated
CPT/HCPCS: 96372; 99284; J1040